=== PATIENT | female | born 1980 | race Caucasian/White ===

== ENCOUNTER 2018-09-25 08:42 | Emergency (ER) | payer SELFPAY ==
--- NOTE | 2018-09-25 09:00 | ED Physician Documentation ---
Foot Injury - HISTORIAN Historian: patient - HPI Stated Complaint: right foot pain x 3 days Chief Complaint: Foot Injury Onset: days ago (3) Where: home Severity: moderate Context: twist Associated Symptoms:: swelling, popping sensation. 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 She has taking "tylenol and ibuprofen like candy" and is helping very little. She is able to walk but with increased pain. Denies any loss of sensation. Mild swelling . She has not had the foot elevated.) - ROS CONST: no problems CVS/RESP: none MS/SKIN/LYMPH: none - PAST HX Past History: none Immunizations: UTD Allergies/Adverse Reactions: Allergies Allergy/AdvReac Type Severity Reaction Status Date / Time acetaminophen Allergy Verified 09/25/18 08:57 [From Darvocet-N] aspirin Allergy Verified 09/25/18 08:57 celecoxib [From Celebrex] Allergy Verified 09/25/18 08:57 ephedrine Allergy Verified 09/25/18 08:57 naproxen Allergy Verified 09/25/18 08:57 propoxyphene Allergy Verified 09/25/18 08:57 [From Darvocet-N] Home Medications: Ambulatory Orders Medication Instructions Recorded NK 09/25/18 - SOCIAL HX Smoking History: cigarettes Alcohol Use: none Drug Use: none - FAMILY HX Family History: none - REVIEWED ASSESSMENTS Nursing Assessment Reviewed: Yes Vitals Reviewed: Yes ED Results Lab/Radiology - Radiology Radiology Impressions: Examination: Plain film right foot History: PAIN IN RIGHT MIDFOOT, HX OF FRACTURE 19 YAERS AGO, BRITTLE BONE DISEASE Findings: 3 views of the right foot demonstrates normal cortical margins. No fracture or dislocation. No soft tissue swelling. No joint effusion. Impression: No acute osseous process. Electronically signed on Sep 25, 2018 9:43:27 AM CDT by: Fidel Griffin Foot Injury Physical Exam - Physical Exam General Appearance: no acute distress, alert Foot: right foot: bone tenderness, pain, soft tissue tenderness, swelling (mild mid foot swelling and a bruise ), left foot: non-tender, normal inspection, normal range of motion, no evidence of injury Ankle: bilateral: non-tender, normal inspection, normal range of motion, no evidence of injury Gait: limited by pain Neuro: sensation nml Vascular: no vascular compromise Tendons: tendon function nml Leg/Knee/Thigh: uninjured above ankle Skin: intact, warm Head/ENT: nml inspection Neck/Back: nml inspection Resp/CVS: chest non-tender, breath sounds nml, heart sounds nml, no resp. distress, lungs clear, reg. rate & rhythm Abdomen: non-tender Discharge Clincal Impression: Right foot pain Referrals: Primary Doctor,Mary Alice [Primary Care Provider] - 2 Days Comments: 1. Continue OTC meds as directed as needed for pain 2. Elevate foot and ice - keep milton for comfort 3. Referral to Dr Medrano for foot pain 4. See PCP In 2 days if needed for continued issues 5. Return to ER for any increasing concerns Condition: Stable Disposition: 01 HOME, SELF-CARE Decision to Admit: NO Date of Decison to Admit: 09/25/18 Decision Time: 09:50
[2018-09-25] MEDS ORDERED: KETOROLAC TROMETHAMINE 60 MG/2 ML VIAL IM ONE (09:46)
[2018-09-25 10:22] VITALS: BP 108/70
--- NOTE | 2018-09-25 13:19 | Diagnostic Imaging Report ---
FRANCO ESCOBAR [facility] [address] [facility] [address] [address] [place], [place]. [address] Report Submission Date: Sep 25, 2018 9:43:27 AM CDT Patient Study Name: KENDALL GRANT Date: Sep 25, 2018 9:00:32 AM CDT Modality Type: DX Gender: F Description: FOOT 3 VIEWS OR MORE : 80 Institution: [facility] Physician: FRANCO ESCOBAR Examination: Plain film right foot History: PAIN IN RIGHT MIDFOOT, HX OF FRACTURE 19 YAERS AGO, BRITTLE BONE DISEASE Findings: 3 views of the right foot demonstrates normal cortical margins. No fracture or dislocation. No soft tissue swelling. No joint effusion. Impression: No acute osseous process. Electronically signed on Sep 25, 2018 9:43:27 AM CDT by: Fidel SWANSON
== END 2018-09-25 10:10 | disposition home or self-care (01) ==
LOC: ED 08:42
DX: M79.671 Pain in right foot (principal)
CPT/HCPCS: 73630; 96372; 99282; 99283; J1885

== ENCOUNTER 2018-10-11 10:06 | Emergency (ER) | payer SELFPAY ==
[2018-10-11] MEDS ORDERED: KETOROLAC TROMETHAMINE 60 MG/2 ML VIAL IM ONE (10:21)
[2018-10-11 10:24] VITALS: BP 125/63
--- NOTE | 2018-10-11 10:30 | ED Physician Documentation ---
Low Back Pain - HISTORIAN Historian: patient - HPI Stated Complaint: back spasms Chief Complaint: Low Back Pain/ Injury Additional Information: Patient is a 37-year-old female who presents to the ER with friend with c/o low back pain- patients behavior is inappropriate- unable to sit still; fidgeting; her friend is unable to sit still fidgeting; both appear to be under the influence. Patient states she is having low back spasms; however she is sitting cross legged in the bed. History: history of chronic pain: Onset: days ago (Started yesterday) Duration: continues in ED Recent Injury: No Context: other ("just started") Where: other ([facility]) Other Injuries: denies: neck Severity: mild Quality: similar- prior back pain Associated Symptoms: denies: fever, chills Worsened By:: nothing Relieved By: nothing - ROS CONST: no problems CVS/RESP: none EYES/ENT: none MS/SKIN/LYMPH: back pain Neuro/Psych: none GI/: denies: abdominal pain - PAST HX Past History: other (depression, psychosis, chronic back pain, fibromyalgia) Immunizations: UTD Allergies/Adverse Reactions: Allergies Allergy/AdvReac Type Severity Reaction Status Date / Time acetaminophen Allergy Verified 10/11/18 10:25 [From Darvocet-N] aspirin Allergy Verified 10/11/18 10:25 celecoxib [From Celebrex] Allergy Verified 10/11/18 10:25 ephedrine Allergy Verified 10/11/18 10:25 naproxen Allergy Verified 10/11/18 10:25 propoxyphene Allergy Verified 10/11/18 10:25 [From Darvocet-N] Home Medications: Ambulatory Orders Medication Instructions Recorded Baclofen 10 mg PO BID PRN #10 tablet 10/11/18 - SOCIAL HX Smoking History: greater than 1 pack/day Alcohol Use: none (denies) Drug Use: none (denies (behavior indicates otherwise)) - FAMILY HX Family History: none - VITAL SIGNS Vital Signs: Vital Signs Temp Pulse Resp BP Pulse Ox 98.4 F 102 H 24 125/63 100 10/11/18 10:20 10/11/18 10:20 10/11/18 10:20 10/11/18 10:20 10/11/18 10:20 - REVIEWED ASSESSMENTS Nursing Assessment Reviewed: Yes Vitals Reviewed: Yes ED Results Lab/Radiology - Orders Orders: ED Orders Category Date Time Status Ketorolac Tromethamine [Toradol] Med 10/11/18 10:21 Discontinued 60 mg IM NOW ONE Low Back Pain/Injury - Physical Exam General Appearance: alert, mild distress EENT: eye inspection normal, ENT inspection normal (pinpoint pupils) Neck: non-tender Resp/CVS: breath sounds nml, heart sounds nml Back: muscle spasm Neuro/Psych: oriented x3, motor nml, sensation nml Skin: warm/dry, normal color Extremities: non-tender, normal range of motion Discharge Clincal Impression: Back spasm Referrals: Primary Doctor,No [Primary Care Provider] - 2 Days Condition: Good Disposition: 01 HOME, SELF-CARE Decision to Admit: NO Decision Time: 10:34
== END 2018-10-11 10:33 | disposition home or self-care (01) ==
LOC: ED 10:06
DX: M62.830 Muscle spasm of back (principal)
CPT/HCPCS: 96372; 99282; 99284; J1885

== ENCOUNTER 2018-11-06 08:15 | Emergency (ER) | payer SELFPAY ==
--- NOTE | 2018-11-06 08:20 | ED Physician Documentation ---
Neck Injury/Pain - HISTORIAN Historian: patient - HPI Stated Complaint: neck pain with spasm - no injury Chief Complaint: Neck Pain Onset: just prior to arrival Duration: continues in ED Recent Injury: No Context: other (just started "cramping" - she has some chronic pain issues in back and neck . ) Where: home Other Injuries: neck Severity: severe (11/27 - she has had no OTC meds in two days ) Quality: sharp, other ("cramp" ) Exacerbated By: sitting position, movement of neck Relieved By: nothing Further Comments: yes (She has a history of pain (fibromyaligia and chronic neck and back pain. She has not had meds "for a while because they took my insurance away" She states 1-2 days ago this cramp started in her neck and she has had increasing cramp since. She has not tried any OTC meds. She has no injury as noted. She states she can move her neck although leaning over to the side she has increased comfort. She is screaming in pain and her child is at bedside) - ROS NEURO/PSYCH: denies: difficulty with speech, anxiety, depression EYES/ENT: none CVS/RESP: none CONST: no problems GI/: denies: nausea, vomiting MS/SKIN/LYMPH: neck pain - PAST HX Past History: other (fibromyalgia and chronic neck and back pain ) Immunizations: UTD Allergies/Adverse Reactions: Allergies Allergy/AdvReac Type Severity Reaction Status Date / Time acetaminophen Allergy Verified 11/06/18 08:35 [From Darvocet-N] aspirin Allergy Verified 11/06/18 08:35 celecoxib [From Celebrex] Allergy Verified 11/06/18 08:35 ephedrine Allergy Verified 11/06/18 08:35 naproxen Allergy Verified 11/06/18 08:35 propoxyphene Allergy Verified 11/06/18 08:35 [From Darvocet-N] Home Medications: Ambulatory Orders Medication Instructions Recorded NK 11/06/18 - SOCIAL HX Smoking History: cigarettes Alcohol Use: none Drug Use: none - FAMILY HX Family History: none - VITAL SIGNS Vital Signs: Vital Signs Temp Pulse Resp BP Pulse Ox 99.1 F 112 H 26 H 128/69 94 11/06/18 08:19 11/06/18 08:19 11/06/18 08:19 11/06/18 08:19 11/06/18 08:19 - REVIEWED ASSESSMENT Nursing Assessment Reviewed: Yes Vitals Reviewed: Yes Progress - Progress Progress: 0900: had a discussion with pt about having child at bedside DG 0945: Pain improved will discharge DG ED Results Lab/Radiology - Orders Orders: ED Orders Category Date Time Status Ketorolac Tromethamine [Toradol] Med 11/06/18 08:38 Discontinued 60 mg IM NOW ONE Orphenadrine Citrate [Norflex] Med 11/06/18 08:39 Discontinued 60 mg IM NOW ONE methylPREDNISolone ACETATE [DEPO-Medrol] Med 11/06/18 08:39 Discontinued 40 mg IM NOW ONE Neck Injury/Pain - Physical Exam General Appearance: no acute distress, moderate distress EENT: nml ENT inspection Neck: nml inspection, other (pain with palpation on left lateral neck - muscle is tight . No obvious injury and FROM although with pain per pt is obtainable) Back: muscle spasm (left lateral neck ) Respiratory: chest non-tender, breath sounds nml CVS: heart sounds nml, bilateral pulses nml Abdomen: non-tender Skin: warm/dry Extremities: non-tender, normal range of motion, no evidence of injury, no edema Neuro/Psych: oriented x3 Discharge Clincal Impression: Neck muscle spasm Referrals: Primary Doctor,No [Primary Care Provider] - 2 Days Comments: 1. Continue OTC meds and ice or heat 2. Follow up with PCP 3. Return to ER for any increasing concerns Condition: Stable Decision to Admit: NO Date of Decison to Admit: 11/06/18 Decision Time: 09:59
[2018-11-06] MEDS: methylPREDNISolone ACETATE 40 MG/ML VIAL IM ONE (08:50)
[2018-11-06] MEDS: KETOROLAC TROMETHAMINE 60 MG/2 ML VIAL IM ONE (08:50)
[2018-11-06] MEDS: ORPHENADRINE CITRATE 60 MG/2 ML ML IM ONE (08:50)
[2018-11-06 10:08] VITALS: BP 110/80
== END 2018-11-06 10:02 ==
LOC: ED 08:15
DX: M62.838 Other muscle spasm (principal)
CPT/HCPCS: 96372; 99282; 99284; J1030; J1885; J2360